=== PATIENT | male | born 1995 | race Caucasian/White ===

== ENCOUNTER 2017-04-29 17:27 | Emergency (ER) | payer SELFPAY ==
[2017-04-29 17:39] VITALS: BP 136/65
[2017-04-29] MEDS ORDERED: Lidocain 1% EPI 1:100,000 * 30 ML MDV INJ ONE (18:49)
[2017-04-29] MEDS ORDERED: Lidocaine 1% MPF wEPI 200,000* 30 ML SDV ONE (18:57)
[2017-04-29] MEDS ORDERED: Lidocaine 1% MPF wEPI 200,000* 30 ML SDV INJ ONE (18:58)
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
== END 2017-04-29 19:41 | disposition home or self-care (01) ==
LOC: UCEAST 17:27
DX: S01.511A Laceration without foreign body of lip, initial encounter (principal); S02.5XXA Fracture of tooth (traumatic), initial encounter for closed fracture; W22.8XXA Striking against or struck by other objects, initial encounter; Y93.9 Activity, unspecified; Y92.9 Unspecified place or not applicable; M45.9 Ankylosing spondylitis of unspecified sites in spine; Z88.1 Allergy status to other antibiotic agents; Z87.891 Personal history of nicotine dependence
CPT/HCPCS: 12011; 99212; G0463; J2001

== ENCOUNTER 2018-04-15 08:42 | Emergency (ER) | payer OTHER ==
[2018-04-15 08:59] VITALS: BP 128/75
--- NOTE | 2018-04-15 09:51 | UC ---
Throat Pain/Nasal Reid HPI - HPI Summary HPI Summary: Pt is a 22 y/o M w/ c/o a sore throat onsetting yesterday. Today, pt notes pain to right side of throat. Pain is rated 7/10 on triage. He denies abdominal pain and back pain. Pt reports feeling fine otherwise and notes an allergy to amoxicillin. - History of Current Complaint Chief Complaint: UCRespiratory Stated Complaint: THROAT COMPLAINT Time Seen by Provider: 04/15/18 09:40 Hx Obtained From: Patient Onset/Duration: Lasting Days - yesterday Severity: Severe Pain Intensity: 7 Pain Scale Used: 0-10 Numeric - 7/10 Associated Signs & Symptoms: Positive: Other - NEGATIVE: back pain, abdominal pain - Allergies/Home Medications Allergies/Adverse Reactions: Allergies Allergy/AdvReac Type Severity Reaction Status Date / Time amoxicillin Allergy Hives Verified 04/15/18 09:00 PMH/Surg Hx/FS Hx/Imm Hx Cardiovascular History: Other Other Cardiovascular History: NEGATIVE: myocardial infarction Other History Of: Negative For: HIV, Hepatitis B, Hepatitis C - Surgical History Surgical History: None - Family History Known Family History: Positive: Other - Brain tumors, skin CA - Social History Alcohol Use: Weekly Substance Use Type: None Smoking Status (MU): Former Smoker Review of Systems ENT: Sore Throat Gastrointestinal: Other - NEGATIVE: abdominal pain Musculoskeletal: Other: - NEGATIVE: back pain All Other Systems Reviewed And Are Negative: Yes Physical Exam - Summary Physical Exam Summary: General: well-appearing, no pain distress Skin: warm, color reflects adequate perfusion, dry Head: normal Eyes: EOMI, FLOR ENT: tonsils with exudates and erythema and positive cervical posterior lymphadenopathy Neck: supple, nontender Respiratory: CTA, breath sounds present Cardiovascular: slightly tachycardic, normal otherwise Abdomen: soft, nontender Bowel: present Musculoskeletal: normal, strength/ROM intact Neurological: sensory/motor intact, A&O x3 Psychological: affect/mood appropriate Triage Information Reviewed: Yes Vital Signs: Initial Vital Signs Temp 98.2 F 04/15/18 08:56 Pulse 110 04/15/18 08:56 Resp 18 04/15/18 08:56 BP 128/75 04/15/18 08:56 Pulse Ox 99 04/15/18 08:56 Vital Signs Reviewed: Yes Throat Pain/Nasal Course/Dx - Differential Dx/Diagnosis Provider Diagnoses: TONSILLITIS Discharge - Sign-Out/Discharge Documenting (check all that apply): Patient Departure - Discharge Plan Condition: Stable Disposition: HOME Prescriptions: Azithromyxin TRACY (NF) [Z-Tracy (Zithromax) 250 mg tabs #6] 2 tab PO .TODAY, THEN 1 DAILY #6 tab Patient Education Materials: Tonsillitis (ED) Referrals: [facility] [Outside] No Primary Care Phys,NOPCP [Primary Care Provider] - Additional Instructions: FOLLOW UP WITH YOUR DOCTOR. GET RECHECKED FOR ANY WORSENING OF YOUR CONDITION OR QUESTIONS OR CONCERNS. - Billing Disposition and Condition Condition: STABLE Disposition: Home
== END 2018-04-15 09:54 | disposition home or self-care (01) ==
LOC: UCEAST 08:42
DX: J03.90 Acute tonsillitis, unspecified (principal); Z88.0 Allergy status to penicillin; Z87.891 Personal history of nicotine dependence
CPT/HCPCS: 87651; 99212; G0463

== ENCOUNTER 2018-04-15 18:37 | Emergency (ER) | payer OTHER ==
[2018-04-15] MEDS ORDERED: Lidocaine 2% VISCOUS* 15 ML UDC PO ONE (19:31)
[2018-04-15 20:06] LABS: Hematocrit 41 % (42-52); Mean Corpuscular HGB Conc 35 g/dl (31-36); Mean Corpuscular Hemoglobin 31 pg (27-31); Mean Corpuscular Volume 91 fL (80-94); Mean Platelet Volume 8.8 um3 (7.4-10.4); Platelet Count 214 10^3/ul (150-450); Red Blood Count 4.48 10^6/ul (4.00-5.40); Red Cell Distribution Width 13 % (10.5-15); White Blood Count 24.1 10^3/ul (3.5-10.8)
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
[2018-04-15 20:20] LABS: ABS Basophils 0.1 10^3/ul (0-0.2); ABS Eosinophils 0.2 10^3/ul (0-0.6); ABS Lymphocytes 2.1 10^3/ul (1.0-4.8); ABS Monocytes 2.4 10^3/ul (0-0.8); ABS Neutrophils 19.2 10^3/ul (1.5-7.7); ABS Nucleated RBC 0 10^3/ul
[2018-04-15 20:27] LABS: EGFR Non-African American 93.2 (>60)
[2018-04-15] MEDS ORDERED: Iohexol 300* (CONTRAST) 10 ML SDV IV ONE (20:36)
[2018-04-15 20:55] LABS: Eosinophil % 0.7 % (0-6); Lymphocyte % 8.7 % (25-47); Nucleated Red Blood Cells % 0
--- NOTE | 2018-04-15 21:22 | RAD ---
INDICATION: Throat pain COMPARISON: None TECHNIQUE: A CT scan of the neck was performed with intravenous contrast following intravenous injection of 50 ml of Omnipaque 300 nonionic contrast. Contiguous axial sections were obtained from the skull base through the lung apices. Images were reconstructed in the coronal and sagittal planes. FINDINGS: There is mild enlargement of the palatine tonsils slightly larger on the right than the left. Within the right palatine tonsil there is an ill-defined area of relative hypoattenuation measuring up to 1.3 cm in greatest axial dimension (axial image 65). The airway is patent. There is no definite drainable fluid collection. No significant enlarged nodes are seen. The parotid and submandibular glands appear to be within normal limits. The thyroid gland appears normal. The lung apices appear clear. The visualized portion of the paranasal sinuses and mastoid air cells appear clear. No significant focal osseous abnormality is seen. IMPRESSION: Right greater than left enlargement of the palatine tonsils with possible phlegmonous changes on the right but no drainable abscess. Please correlate to direct visualization.
[2018-04-15] MEDS ORDERED: methylPREDNISolone 125 MG* 2 ML VIAL IV ONE (21:36)
[2018-04-15] MEDS ORDERED: oxyCODONE/Acetamin 5/325 MG* TAB PO ONE (21:36)
[2018-04-15] MEDS ORDERED: cefTRIAXone(*) 1 GM in NS 0.9% 50 ML* 50 ML IVPB ONE (21:36)
[2018-04-15] MEDS ORDERED: Morphine VIAL* 10 MG/ML 1 ML VIAL IV ONE (21:40)
[2018-04-15] MEDS ORDERED: Ondansetron INJ* 2 MG/ML VIAL IV PRN (21:40)
[2018-04-15] MEDS ORDERED: Morphine VIAL* 4 MG/ML VIAL (1 ml vial) IV ONE (21:46)
[2018-04-15] MEDS ORDERED: Ketorolac INJ* 30 MG/ML 1 ML VIAL IV ONE (21:59)
[2018-04-15] MEDS ORDERED: NS 0.9% 1000 ML* 1,000 ML IV ONE (22:08)
[2018-04-16 00:09] VITALS: BP 169/97
[2018-04-18 20:15] LABS: N. gonorrhoeae Source THROAT
== END 2018-04-16 00:10 | disposition home or self-care (01) ==
LOC: ED 18:37
DX: J02.9 Acute pharyngitis, unspecified (principal); R13.10 Dysphagia, unspecified; J35.1 Hypertrophy of tonsils; Z88.0 Allergy status to penicillin; Z80.8 Family history of malignant neoplasm of other organs or systems; Z87.891 Personal history of nicotine dependence
CPT/HCPCS: 36415; 70491; 80053; 83605; 85025; 86140; 86308; 87491; 87591; 87651; 96365; 96375; 99284; J0696; J1885; J2270; J2405; J2930; Q9967